=== PATIENT | male | born 1980 | race Native Hawaiian/Other Pacific Islander ===

== ENCOUNTER 2022-11-07 07:34 | Outpatient (CLI) | payer SELFPAY | END 2022-11-07 07:35 | disposition home or self-care (01) | LOC: AMB 11-15 19:20 | PROVIDERS: Visit Provider Family Medicine | DX: R53.83 Other fatigue (principal); R11.2 Nausea with vomiting, unspecified; R53.1 Weakness | CPT/HCPCS: A0425; A0427 ==

== ENCOUNTER 2022-11-07 08:12 | Emergency (ER) | payer SELFPAY ==
[2022-11-07 08:20] VITALS: BP 117/78; PULSE 46; RESP 18; TEMP 36.1; O2SAT 100; BMI 25.4
--- NOTE | 2022-11-07 08:47 | CRLHL7_ITS ---
For Patients: As a result of the Century Cures Act, medical imaging exams and procedure reports are released immediately into your electronic medical record. You may view this report before your referring provider. If you have questions, please contact your health care provider. INDICATION: Chest pain COMPARISON: None TECHNIQUE: PA and lateral views of the chest were acquired FINDINGS: TUBES AND LINES: None. HEART AND MEDIASTINUM: The heart size is normal. The mediastinal contour appears normal for patient age. LUNGS AND PLEURAL SPACES: Mildly prominent perihilar bronchovascular markings on the left. No focal consolidation. This is probably inflammatory.The pleural spaces are unremarkable. OSSEOUS STRUCTURES: Age-appropriate appearance. No acute focal finding. IMPRESSION: Mildly prominent perihilar bronchovascular markings on the left. No focal consolidation. Normal pleural spaces. This is likely inflammatory. Dictated by David Villalobos MD @ 11/07/2022 9:49:36 AM (Electronically Signed)
[2022-11-07 09:00] VITALS: BP 123/72; PULSE 53; RESP 18; O2SAT 100
[2022-11-07 09:07] LABS: Basophils Absolute Auto 0.03 K/uL (0.00-0.30); Basophils Percent Auto 0.3 % (0.0-3.0); Eosinophils Absolute Auto 0.03 K/uL (0.00-0.50); Eosinophils Percent Auto 0.3 % (0.0-7.0); Hematocrit 47.7 % (37.0-53.0); Hemoglobin* 16.1 gm/dL (13.5-17.5); Immature Granulocytes Abs Auto 0.04 K/uL (0.00-0.30); Immature Granulocytes Pct Auto 0.4 %; Mean Corpuscular HGB Conc 34 gm/dL (32-36); Mean Corpuscular Hemoglobin 31 pg (26-34); Mean Corpuscular Volume 92 fL (80-100); Monocytes Percent Auto 3.6 % (0.0-11.0); Neutrophils Percent Auto 81.4 % (42.0-72.0); Platelet Count* 381 K/uL (140-440); RDW Coefficient of Variation % 12.3 % (11.5-15.5); Red Blood Count 5.17 m/uL (4.30-5.90); White Blood Count* 9.79 K/uL (4.50-11.00)
[2022-11-07] MEDS: PANTOPRAZOLE SODIUM 40 MG INJ IVP (09:08)
[2022-11-07] MEDS: ONDANSETRON 2 MG/ML inj 4 MG IVP (09:08)
[2022-11-07] MEDS: 0.9 % SODIUM CHLORIDE 1000 ml 1,000 ML IV (09:08)
[2022-11-07] MEDS: ASPIRIN 81 MG TAB.CHEW 324 MG PO (09:09)
[2022-11-07 09:13] LABS: Slide Review Reflex No
[2022-11-07 09:30] VITALS: BP 135/76; PULSE 67; RESP 18; O2SAT 98
[2022-11-07 09:33] LABS: Chloride* 105 mmol/L (96-114); Potassium* 3.7 mmol/L (3.6-5.1); Sodium* 140 mmol/L (135-149)
[2022-11-07 09:34] LABS: PCR FLU A Negative PCR FLU A (Negative); PCR FLU B Negative PCR FLU B (Negative); PCR RSV Negative PCR RSV (Negative); SARS PCR* Negative SARS-CoV-2 (Negative)
[2022-11-07 09:36] LABS: Blood Urea Nitrogen* 21 mg/dL (5-24); Carbon Dioxide* 16 mmol/L (20-32); Creatinine* 0.9 mg/dL (0.5-1.5); Est. Creatinine Clearance* 99.97; Estimated Glomerular Filt Rate 109 ml/min; Ethanol* 0.05 % (0.01-0.03)
[2022-11-07 09:37] LABS: Calcium* 8.7 mg/dL (8.4-10.6); Glucose* 59 mg/dL (60-115)
[2022-11-07 09:41] LABS: INR 0.94 (0.91-1.10); Partial Thromboplastin Time* 29 Seconds (23-33); Prothrombin Time 13.2 Seconds
[2022-11-07 09:44] LABS: D Dimer Quantitative* 0.54 ug/ml (0.00-0.50)
[2022-11-07 09:48] LABS: NT Pro B Type NatriureticPept* 42 pg/mL
--- NOTE | 2022-11-07 09:52 | CRLHL7_ITS ---
For Patients: As a result of the Century Cures Act, medical imaging exams and procedure reports are released immediately into your electronic medical record. You may view this report before your referring provider. If you have questions, please contact your health care provider. INDICATION: Chest pain with elevated D-dimer COMPARISON: No prior transaxial studies TECHNIQUE: : CT examination of the chest was performed with the uneventful intravenous administration of 95 cc of Isovue 370 while thin axial sections were obtained from above the apices of the lungs to the lung bases. Please note that all CT scans at this facility use dose modulation, iterative reconstruction, and/or weight-based dosing when appropriate to reduce radiation dose to as low as reasonably achievable. FINDINGS: : HEART and MEDIASTINUM: The heart size is normal. There is no mediastinal or hilar adenopathy or mass. There is no pericardial effusion.Mildly prominent ascending aorta at 3.9 centimeters. No evidence of dissection. The 2 most common causes of this appearance are systemic hypertension or aortic valvular disease PULMONARY ARTERIAL CIRCULATION: There is no visible intraluminal filling defect to suggest pulmonary embolus. LUNGS: The lungs show no focal consolidation or mass. The airways appear normal. A few linear areas of atelectasis PLEURAL SPACES: There is no pleural effusion, pneumothorax or pleural based mass. VISUALIZED UPPER ABDOMEN: Hepatic steatosis. Otherwise, the limited visualized upper abdominal structures appear normal. OSSEOUS STRUCTURES: Age-appropriate appearance. No acute fracture or destructive process. TUBES and LINES: None. IMPRESSION: 1. There is no finding of pulmonary embolus. 2. The lungs are clear other than trace basilar atelectasis. Normal pleural spaces. 3. Mild fusiform dilatation of the ascending aorta at 3.9 centimeters. No evidence of dissection. The 2 most common causes of this appearance are systemic hypertension and aortic valvular disease. 4. Hepatic steatosis Please note that all CT scans at this facility use dose modulation, iterative reconstruction, and/or weight-based dosing when appropriate to reduce radiation dose to as low as reasonably achievable. Dictated by David Villalobos MD @ 11/07/2022 10:49:57 AM (Electronically Signed)
[2022-11-07 10:00] VITALS: BP 130/88; PULSE 67; RESP 18; O2SAT 99
[2022-11-07 10:30] VITALS: BP 139/85; RESP 77; O2SAT 99
[2022-11-07 12:00] VITALS: BP 126/79; PULSE 84; RESP 18; O2SAT 99
--- NOTE | 2022-11-07 18:26 | ED_ITS ---
HPI - Chest Pain General Date Seen: 11/07/22 Chief Complaint: Chest Pain Stated Complaint: Collapsed at home Time Seen by Provider: 11/07/22 08:29 Source: patient and family Mode of arrival: ambulatory Limitations: no limitations History of Present Illness HPI narrative: patient is a very nice 42-year-old gentleman who presents here with centralized epigastric chest discomfort for the past 4-6 hours. This came on over the night, there is some maybe a little bit of radiation to his left shoulder associated with this, and some nausea, it was so bad, that he actually got up took a few steps and then was sweating profusely and felt he was going to pass out and laid down on the floor, he does not think he ever really lost consciousness, but there was an episode there worry can not quite remember very well, he denies any current chest pain, no previous history of syncope, but there is a history of increased alcohol intake in the past, no history of black stools or blood in his stools or vomiting up any blood, 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 MD complaint: chest pain Risk Factors Coronary artery disease risk factors: family history of CAD before age 50 Related Data Previous Rx's Medication Instructions Recorded omeprazole 40 mg capsule,delayed 40 mg PO DAILY #30 caps 11/07/22 release Allergies Allergy/AdvReac Type Severity Reaction Status Date / Time No Known Drug Allergies Allergy Verified 11/07/22 10:27 Review of Systems Status of ROS Reports: 10 or more systems reviewed and unremarkable except as noted in History and below PFSH PFS Social History Smoking Status: Unknown if ever smoked Do you use any of these nicotine containing products: None How often do you have a drink containing alcohol: never AUDIT-C Alcohol total score: 0 Non-prescribed substance use: denies use Exam Narrative Exam Narrative: Patient is seen in room 6 he is in no apparent distress speaking to me normally. Patient is speaking normally, problem with no slurring words, oriented x3. Head eyes ears nose and throat exam show equal pupils, no scleral icterus, extraocular muscles are normal, no facial droop, speech is normal, trachea normal and midline. Thyroid normal midline palpable not enlarged. Chest shows symmetrical rise bilaterally, normal auscultation with no wheezes, no increased work of breathing, no overt bruising or lesions seen, no tenderness is noted on auscultation. Heart sounds normal with no S3-S4 no murmurs clicks or gallops. Abdomen shows no obvious masses or hepatosplenomegaly, no organomegaly, bowel sounds are normal in all quadrants. No tenderness is noted also in all quadrants. Upper and lower extremities show normal power, normal range of motion, pulses are normal, sensations normal, fine motor movements are normal, pelvis is stable to rocking. Cervical spine shows normal range of motion, and palpably not tender. Thoracic spine shows normal range of motion, and palpably not tender, lumbar spine shows no tenderness to palpation percussion and is otherwise normal range of motion. Skin shows no rashes, petechiae or eccymosis. Const Vital Signs, click to edit/add: Vital Signs - 24 hr 11/07/22 08:20 11/07/22 09:00 11/07/22 09:30 Temperature 97.0 F L Pulse Rate [Right Pulse Oximeter] 46 L 53 L 67 Respiratory Rate 18 18 18 Blood Pressure [Right Upper Arm] 117/78 123/72 135/76 Pulse Oximetry 100 100 98 Oxygen Delivery Method Room Air Room Air Room Air 11/07/22 10:00 11/07/22 10:30 11/07/22 12:00 Temperature Pulse Rate [Right Pulse Oximeter] 67 84 Respiratory Rate 18 77 H 18 Blood Pressure [Right Upper Arm] 130/88 139/85 126/79 Pulse Oximetry 99 99 99 Oxygen Delivery Method Room Air Room Air Documenting provider has reviewed patient's vital signs: yes Course Vital Signs Vital signs: Initial Vital Signs Temperature 97.0 F L 11/07/22 08:20 Temperature Source Temporal Artery Scan 11/07/22 08:20 Pulse Rate 46 L 11/07/22 08:20 Respiratory Rate 18 11/07/22 08:20 Blood Pressure 117/78 11/07/22 08:20 Blood Pressure Mean 91 11/07/22 08:20 Blood Pressure Position Sitting 11/07/22 08:20 Pulse Oximetry 100 11/07/22 08:20 Oxygen Delivery Method 11/07/22 08:20 Vital Signs Temperature 97.0 F L 11/07/22 08:20 Pulse Rate 46 L 11/07/22 08:20 Respiratory Rate 18 11/07/22 08:20 Blood Pressure 117/78 11/07/22 08:20 Pulse Oximetry 100 11/07/22 08:20 Oxygen Delivery Method 11/07/22 08:20 Temperature 97.0 F L 11/07/22 08:20 Pulse Rate 84 11/07/22 12:00 Respiratory Rate 18 11/07/22 12:00 Blood Pressure 126/79 11/07/22 12:00 Pulse Oximetry 99 11/07/22 12:00 Oxygen Delivery Method 11/07/22 10:30 MDM - Chest Pain MDM Narrative Medical decision making narrative: During the evaluation of this patient I considered multiple differential diagnosis is. The life-threatening differential diagnosis include coronary disease/AR, pulmonary embolism, pneumothorax, pneumonia, and aortic dissection. Other differential diagnosis included but were not limited to pericarditis, myocarditis, chest wall pain, GERD, esophageal rupture, rib fracture contusion, pleurisy, as well as other etiologies. Medical Records Data Attestation: I reviewed the patient's medical records. Lab Data Attestation: I reviewed the patient's lab results. Labs: Lab Results 11/07/22 11/07/22 11/07/22 Range/Units 08:30 08:47 08:50 WBC 9.79 (4.50-11.00) K/uL RBC 5.17 (4.30-5.90) m/uL Hgb 16.1 (13.5-17.5) gm/dL Hct 47.7 (37.0-53.0) % MCV 92 (80-100) fL MCH 31 (26-34) pg MCHC 34 (32-36) gm/dL RDW Coeff of Mariza 12.3 (11.5-15.5) % Plt Count 381 (140-440) K/uL Neut % (Auto) 81.4 H (42.0-72.0) % Lymph % (Auto) 14.0 L (20-44) % Bartow % (Auto) 3.6 (0.0-11.0) % Eos % (Auto) 0.3 (0.0-7.0) % Baso % (Auto) 0.3 (0.0-3.0) % Neut # (Auto) 8.00 H (1.7-7.0) K/uL Lymph # (Auto) 1.40 (0.90-2.90) K/uL Bartow # (Auto) 0.40 (0.00-0.90) K/UL Eos # (Auto) 0.03 (0.00-0.50) K/uL Baso # (Auto) 0.03 (0.00-0.30) K/uL INR (0.91-1.10) APTT (23-33) Seconds D-Dimer Quant (PE/DVT) (0.00-0.50) ug/ml Sodium (135-149) mmol/L Potassium (3.6-5.1) mmol/L Chloride (96-114) mmol/L Carbon Dioxide (20-32) mmol/L BUN (5-24) mg/dL Creatinine (0.5-1.5) mg/dL Estimated Creat Clear Estimated GFR ml/min Glucose (60-115) mg/dL Calcium (8.4-10.6) mg/dL NT-Pro-B Natriuret Pep pg/mL Ethyl Alcohol (0.01-0.03) % SARS-CoV-2 (PCR) Negative SARS-CoV-2 (Negative) Influenza Type A (PCR) Negative PCR FLU A (Negative) Influenza Type B (PCR) Negative PCR FLU B (Negative) RSV (PCR) Negative PCR RSV (Negative) POC Troponin I 0.00 L (0.01-0.04) ng/ml 11/07/22 11/07/22 11/07/22 Range/Units 08:50 08:50 08:50 WBC (4.50-11.00) K/uL RBC (4.30-5.90) m/uL Hgb (13.5-17.5) gm/dL Hct (37.0-53.0) % MCV (80-100) fL MCH (26-34) pg MCHC (32-36) gm/dL RDW Coeff of Mariza (11.5-15.5) % Plt Count (140-440) K/uL Neut % (Auto) (42.0-72.0) % Lymph % (Auto) (20-44) % Bartow % (Auto) (0.0-11.0) % Eos % (Auto) (0.0-7.0) % Baso % (Auto) (0.0-3.0) % Neut # (Auto) (1.7-7.0) K/uL Lymph # (Auto) (0.90-2.90) K/uL Bartow # (Auto) (0.00-0.90) K/UL Eos # (Auto) (0.00-0.50) K/uL Baso # (Auto) (0.00-0.30) K/uL INR 0.94 (0.91-1.10) APTT 29 (23-33) Seconds D-Dimer Quant (PE/DVT) 0.54 H (0.00-0.50) ug/ml Sodium 140 (135-149) mmol/L Potassium 3.7 (3.6-5.1) mmol/L Chloride 105 (96-114) mmol/L Carbon Dioxide 16 L (20-32) mmol/L BUN 21 (5-24) mg/dL Creatinine 0.9 (0.5-1.5) mg/dL Estimated Creat Clear 99.97 Estimated GFR 109 ml/min Glucose 59 L (60-115) mg/dL Calcium 8.7 (8.4-10.6) mg/dL NT-Pro-B Natriuret Pep 42 pg/mL Ethyl Alcohol 0.05 H (0.01-0.03) % SARS-CoV-2 (PCR) (Negative) Influenza Type A (PCR) (Negative) Influenza Type B (PCR) (Negative) RSV (PCR) (Negative) POC Troponin I (0.01-0.04) ng/ml 11/07/22 Range/Units 10:35 WBC (4.50-11.00) K/uL RBC (4.30-5.90) m/uL Hgb (13.5-17.5) gm/dL Hct (37.0-53.0) % MCV (80-100) fL MCH (26-34) pg MCHC (32-36) gm/dL RDW Coeff of Mariza (11.5-15.5) % Plt Count (140-440) K/uL Neut % (Auto) (42.0-72.0) % Lymph % (Auto) (20-44) % Bartow % (Auto) (0.0-11.0) % Eos % (Auto) (0.0-7.0) % Baso % (Auto) (0.0-3.0) % Neut # (Auto) (1.7-7.0) K/uL Lymph # (Auto) (0.90-2.90) K/uL Bartow # (Auto) (0.00-0.90) K/UL Eos # (Auto) (0.00-0.50) K/uL Baso # (Auto) (0.00-0.30) K/uL INR (0.91-1.10) APTT (23-33) Seconds D-Dimer Quant (PE/DVT) (0.00-0.50) ug/ml Sodium (135-149) mmol/L Potassium (3.6-5.1) mmol/L Chloride (96-114) mmol/L Carbon Dioxide (20-32) mmol/L BUN (5-24) mg/dL Creatinine (0.5-1.5) mg/dL Estimated Creat Clear Estimated GFR ml/min Glucose (60-115) mg/dL Calcium (8.4-10.6) mg/dL NT-Pro-B Natriuret Pep pg/mL Ethyl Alcohol (0.01-0.03) % SARS-CoV-2 (PCR) (Negative) Influenza Type A (PCR) (Negative) Influenza Type B (PCR) (Negative) RSV (PCR) (Negative) POC Troponin I 0.00 L (0.01-0.04) ng/ml Imaging Data Chest x-ray: Attestation: I have reviewed the pertinent imaging results. My impression: No acute changes seen on chest x-ray Radiologist's impression: no acute changes seen by per Radiology ECG Data Attestation: I personally reviewed and interpreted this ECG as follows: ECG interpretation date: 11/07/22 Interpretation: no acute changes seen on EKG and follow-up Discharge Plan Discharge Clinical Impression: Aortic root enlargement, Chest pain Patient Disposition: Home w/ Parent or Adult Condition: Improved Instructions: Chest Pain (DC), Noncardiac Chest Pain (ED) Additional Instructions: Home rest follow-up with Dr. Cook in 3-5 days. Please take your Prilosec which is [id number], as prescribed, also suggest avoidance of alcohol, caffeinated beverages, I would also suggest daily aspirin ASA 81 mg, until follow-up. Recommend stress echo as an outpatient. Dr. Cook can arrange this. Increasing chest pain, shortness of breath, or other issues you should come back to the emergency room. He will need to follow-up CT in 3-6 months for the mild aortic root enlargement. Take Prilosec 40 mg a day, I have given a prescription for you, but I did buy it [id number] which for me was cheaper Follow up appointment is scheduled at the [facility] on 11/17 with a 2:50pm arrival time. If you have any questions or need to reschedule, please call [phone]. [facility] [address] [place] [address] Prescriptions: New omeprazole 40 mg capsule,delayed release(DR/EC) 40 mg PO DAILY Qty: 30 2RF Follow Up/Referrals: Cesar Cook MD [Staff Physician] - Provider,Not a Local [Primary Care Provider] - Stand Alone Forms: [employer] Info Instructions
== END 2022-11-07 12:25 | disposition home or self-care (01) ==
PROVIDERS: Emergency Provider Family Medicine
DX: I77.810 Thoracic aortic ectasia (principal); R07.9 Chest pain, unspecified
CPT/HCPCS: 36415; 71046; 71260; 80048; 82077; 83880; 84484; 85025; 85379; 85610; 85730; 87502; 87634; 87635; 93005; 96374; 96375; 99285; A9270; C9113; J2405; J7030; Q9967

== ENCOUNTER 2022-11-17 15:34 | Outpatient (CLI) | payer SELFPAY ==
[2022-11-17 17:26] LABS: Cholesterol* 169 mg/dL (90-199)
[2022-11-17 17:27] LABS: HDL Cholesterol* 68 mg/dL (>=40); LDL Cholesterol Calculated 77 mg/dL (<100); Triglycerides* 121 mg/dL (40-149)
== END 2022-11-17 15:35 | disposition home or self-care (01) ==
LOC: NFLDREF 15:34
PROVIDERS: Visit Provider Family Medicine
DX: R07.9 Chest pain, unspecified (principal)
CPT/HCPCS: 80061

== ENCOUNTER 2022-11-23 15:05 | Outpatient (CLI) | payer SELFPAY ==
[2022-11-23] MEDS: PERFLUTREN LIPID MICROSPHERES 2 ML VIAL IV (16:11)
[2022-11-23 16:45] VITALS: BP 158/85; PULSE 108
--- NOTE | 2022-11-23 19:15 | W.PM.STED ---
Stress Test Note Date Time Seen by Provider: 15:38 Date Seen: 11/23/22 Date of test: 11/23/22 Providers Referring provider: Cesar Cook Primary care provider: Cesar Cook Stress test physician: Jadyn Chambers Stress Test Note Stress test ordered: Stress Echo Indication for test: Chest pain Stress test medicine: [facility] Results discussion: Resting EKG: Sinus rhythm, 73 beats per minute Resting blood pressure: 142/93 Stress test: Patient's cardiac stress test medical history reviewed, consented on stress test. Patient exercised following standard Shamir protocol treadmill stress echo. He exercised to 11 minutes 25 seconds achieving 12.1 Mets. He had a maximum heart rate of 177 beats per minute which was 117% of a calculated target heart rate of 151, maximal calculated heart rate was 178. He had no arrhythmias, no concerning symptoms, no evidence of any ischemia. He did have a hypertensive response to exercise with the blood pressure of 200/106. Rate pressure product was 30,800. Echo images are pending. Impression: Subjectively negative, objectively negative EKG portion of this stress test. Hypertensive response to exercise noted. Follow up suggested: We will await echo images to couple this for a full formal diagnostic. Patient was discharged home in stable condition. He was counseled that his blood pressure should be monitored and initiation of hypertensive management be considered if appropriate.
== END 2022-11-23 15:06 | disposition home or self-care (01) ==
PROVIDERS: Visit Provider Family Medicine
DX: R07.9 Chest pain, unspecified (principal)
CPT/HCPCS: 93016; 93325; 93351; Q9957

== ENCOUNTER 2025-04-25 03:31 | Emergency (ER) | payer OTHER, SELFPAY ==
--- OUTSIDE RECORDS SUMMARY | 2025-04-25 03:33 | XMS_ITS | Clinical Summary ---
Author Organization [facility] Address [address] [place] [id number] Care Team Providers Care Green Chainer Name Role Phone No Ref-Primary, Physician Primary Care Provider Allergies No known active allergies Medications HYDROcodone-quita taminophen (NORCO) 5-325 MG per tabletIndicatio ns:Incarcerated left inguinal hernia,Acute post-operative pain Take 1-2 tablets by mouth every 4 hours as needed for pain 30 tablet 02/02/2017 Active sucralfate (CARAFATE) 1 GM/10ML suspension Take 10 mLs (1 g) by mouth 4 times daily 420 mL 04/12/2018 Active Active Problems Problem Noted Date Diagnosed Date Incarcerated left inguinal hernia 01/27/2017 Social History Tobacco Use Types Packs/Day Years Used Date Smoking Tobacco: Never Assessed Adolescent Education Answer Date Record ed Getting School Help Needed Not on file 08/08 Sex and Gender Information Value Date Recorded Sex Assigned at Not on file 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 Gender Identity Not on file Sexual Orientation Not on file Last Filed Vital Signs Vital Sign Reading Time Taken Comments Blood Pressure 149/93 04/12/2018 6:30 AM CDT Pulse 120 04/12/2018 4:16 AM CDT Temperature 36.8 C (98.2 F) 04/12/2018 4:16 AM CDT Respiratory Rate 22 04/12/2018 4:16 AM CDT Oxygen Saturation 97% 04/12/2018 6:30 AM CDT Inhaled Oxygen Concentration - - Weight 78 kg (172 lb) 04/12/2018 4:16 AM CDT Height 172.7 cm (5' 8) 04/12/2018 4:16 AM CDT Body Mass Index 26.15 04/12/2018 4:16 AM CDT Plan of Treatment Not on file Medical Devices Implanted Type Area [employer] Architect Device Identifier Shelf Expiration Date Model / Serial / Lot Pro Lapeler 12cm X 8cm Mesh Left Implanted:Qty: 1 on 01/27/2017 by Kofi Reyes MD at [facility] Mesh Left: Inguinal COVIDIEN 04/20/2021 [id number] / / [id number] Advance Directives For more information, please contact: [phone] * Full Code (Latest Code Status on File) Date Activated Date Inactivated Comments 01/27/2017 1:54 PM * Full Code Date Activated Date Inactivated Comments 01/27/2017 5:59 AM 01/27/2017 1:54 PM Care Teams Green Chainer Relationship Specialty Start Date End Date No Ref-Primary, Physician PCP - General 04/12/18
--- OUTSIDE RECORDS SUMMARY | 2025-04-25 03:33 | XMS_ITS | Clinical Summary ---
Author Organization [facility] Address [address] [place] [id number] Care Team Providers Care Chart Collector Name Role Phone [facility], [facility] Primary Care Provide r Allergies No known active allergies Medications fluoxetine (PROZAC) 20 mg capsule Take 20 mg by mouth every morning. Active ALPRAZolam (XANAX) 1 mg tablet Take 1 mg by mouth 2 times daily if needed. Active PARoxetine (PAXIL) 20 mg tabletIndication s:Anxiety Take 1 tablet by mouth every morning. 30 tablet 12/11/2017 Active traZODone (DESYREL) 150 mg tabletIndication s:Difficulty sleeping Take 1 tablet by mouth at bedtime. 30 tablet 12/11/2017 Active clonazePAM (KLONOPIN) 0.5 mg tabletIndication s:Anxiety Take 1 tablet by mouth 2 times daily if needed. 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 Gender Identity Not on file Sexual Orientation Not on file Obstetrics History Plan of Treatment Health Maintenance Due Date Last Done Comments HIV for age 15-65 1995 BMI (ht and wt on same day) for age 18+ 1998 Hepatitis C screening for ag e 18-79 1998 Hepatitis B series for 19+ ( 1 of 3 - 19+ 3-dose series) 1999 Lipids for age 35-44 2015 Depression screening for age 12+ 12/11/2018 12/11/2017, 12/11/2017 Tetanus booster 04/05/2019 04/05/2009 COVID-19 vaccine series (2023- season) 2024 Influenza Vaccine (Season Ended) 2025 (IA) Tdap Completed 04/05/2009 Pneumococcal series for age 6-49 Aged Out No longer eligible b ased on patient's age to complete this topic Care Teams Chart Collector Relationship Specialty Start Date End Date [facility], [facility] [address] [place] [address] PCP - General 12/11/17
--- OUTSIDE RECORDS SUMMARY | 2025-04-25 03:33 | XMS_ITS | Clinical Summary ---
Author Organization [facility] Address [address] [place] [address] Care Team Providers Care Carcass Washer Name Role Phone Unavailable Primary Care Provider Unavailabl e Source Comments PLEASE NOTE, if this patient is a minor, it may be UNLAWFUL to discuss sensitive information that is contained in these records (such as FAMILY PLANNING, MENTAL HEALTH or SUBSTANCE ABUSE) with the minor patient's parent or other person without the patient's specific authorization.[facility] Allergies No known active allergies Medications HYDROcodone-acet aminophen (NORCO) 5-325 mg per tablet Take by mouth 02/02/2017 Active Active Problems No known active problems Family History Medical History Relation Name Comments Blindness Neg Glaucoma Neg Macular degeneration Neg Social History Tobacco Use Types Packs/Day Years Used Date Smoking Tobacco: Never Assessed Social Connections Answer Date Recorded Social Connections and Isolation 0 06/15/2019 Financial Resource Strain Answer Date R ecorded Financial Resource Strain 0 2018 Stress Answer Date Recorded Stress 0 06/15/2019 Physical Activity Answer Date Recorded Physical Activity 0 06/15/2019 Food Insecurity Answer Date Recorded Food 0 06/15/2019 Transportation Needs Answer Date Record ed Transportation 0 06/15/2019 Housing Stability Answer Date Recorded Housing 0 06/15/2019 Safety and Environment Answer Date Selvin rded Safety 0 06/15/2019 Utilities Answer Date Recorded Utilities 0 06/15/2019 Employment Answer Date Recorded Employment 0 06/15/2019 Sex and Gender Information Value Date Recorded Sex Assigned at Not on file Legal Sex Male 9:39 AM PDT Gender Identity Not on file Sexual Orientation Not on file Plan of Treatment Not on file
[2025-04-25 03:48] VITALS: BP 131/92; PULSE 103; RESP 16; TEMP 37; O2SAT 97; BMI 25.8
--- NOTE | 2025-04-25 03:58 | ED_ITS ---
HPI - General Adult General Date Seen: 04/25/25 Chief complaint: Alcohol/Intoxication Stated complaint: detoxing from ETOH Time Seen by Provider: 04/25/25 03:57 History of Present Illness HPI narrative: 44-year-old male presenting to the ER tonight at 3:45 a.m. he presents to the ER tonight for alcohol problems, vomiting, and concern for withdrawal. He has a past medical history of GERD, enlarged aortic root, anxiety, alcoholic gastritis. He presents to the emergency department with his and mother with concern for alcohol abuse, vomiting, and hematemesis. He has a history of alcohol abuse in the past but had apparently been through treatment and had been sober now for 6 months. 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 He also has relationship stress with his . Last weekend he started drinking again. He apparently started drinking socially with some friends and then just could not stop. He has been drinking heavily since last weekend. Roughly a bottle of hard alcohol per day and also maybe 10 beers. He started trying to cut down a couple of days ago. He developed nausea and . It sounds like he was having repetitive nonbloody emesis at home. Bowel movements been sometimes liquidy and dark brown but not melanotic. No bloody stools. He has been trying to gradually titrate down his alcohol consumption. Last alcoholic drink was probably 8 hours prior to presentation. What brought him to the ER at at this hour the night is that at home he had another episode of vomiting and vomited up a small amount of bright red blood. Is also having some burning pain in his upper abdomen and lower esophagus. He has pain with swallowing. He also says that he has not been able to control his drinking this week. Says whenever he stops he gets very anxious. He has a history of anxiety. He typically manages over the long-term with exercise. He does not like to take medications. Does really have a doctor for his anxiety and is not on any long- term meds. It sounds like years ago he was given a prescription for p.r.n. benzodiazepine. Related Data Home Medications ?Medication ?Instructions ?Recorded ?Confirmed No Known Home Medications 04/25/2503/15 Allergies Allergy/AdvReac Type Severity Reaction Status Date / Time No Known Drug Allergies Allergy Verified 11/17/22 15:06 [facility] Medical History (Updated 04/25/25 @ 05:53 by Thierno Caro MD) GERD (gastroesophageal reflux disease) ?K21.9 - Gastro-esophageal reflux disease without esophagitis (ICD-10) Insomnia ?G47.00 - Insomnia, unspecified (ICD-10) Anxiety attack ?F41.0 - Panic disorder [episodic paroxysmal anxiety] (ICD-10) Alcoholic gastritis ?K29.20 - Alcoholic gastritis without bleeding (ICD-10) Aortic root enlargement ?I77.89 - Other specified disorders of arteries and arterioles (ICD-10) Family History (Updated 11/19/22 @ 23:34 by Cesar Cook MD) Father Coronary artery disease Social History (Updated 11/19/22 @ 23:33 by Cesar Cook MD) Narrative: Former smoker, owns [employer] in [place] Smoking Status: Former smoker Do you use any of these nicotine containing products: None How often do you have a drink containing alcohol: 4 or more times a week How many standard drinks containing alcohol do you have on a typical day: 10 or more How often do you have six or more drinks on one occasion: Daily or almost daily AUDIT-C Alcohol total score: 12 Non-prescribed substance use: denies use Exam Narrative: Exam Narrative: Constitutional: Appears well-developed and well-nourished. Alert. Conversant, polite. Speech is fluent and does not seem to be slurred.. Non toxic. HENT: Head: Atraumatic. Nose: Nose normal. Mouth/Throat: Oral mucosa is clear and moist. no trismus. Pharynx normal. Tonsils symmetric. No tonsillar enlargement, erythema, or exudate. Eyes: Conjunctivae normal. EOM normal. Pupils equal, round, and reactive to light. No scleral icterus. Neck: Normal range of motion. Neck supple. No tracheal deviation present. Cardiovascular: Normal rate, regular rhythm. No gallop. No friction rub. No murmur heard. Symmetric radial artery pulses Pulmonary/Chest: Effort normal. No stridor. No respiratory distress. No wheezes. No rales. No rhonchi . No tenderness. Abdominal: Soft. Bowel sounds normal. No distension. No mass. Epigastric tenderness. No right upper quadrant tenderness. No rebound. No guarding. Musculoskeletal: RUE: Normal range of motion. No tenderness. No deformity LUE: Normal range of motion. No tenderness. No deformity RLE: Normal range of motion. No edema. No tenderness. No deformity LLE: Normal range of motion. No edema. No tenderness. No deformity Neurological: Alert and oriented to person, place, and time. Normal strength. CN II-VII intact. No sensory deficit. GCS eye subscore is 4. GCS verbal subscore is 5. GCS motor subscore is 6. Normal coordination Skin: Skin is warm and dry. No rash noted. No pallor. Normal capillary refill. Psychiatric: Endorses lot of anxiety. As long life stress with his job in relationship with his . Has a history of alcohol abuse but had been sober for 6 months until he relapsed last week and has been drinking heavily since then.. Does not have any long-term treatment for his anxiety. No medications. Would be willing to consider transfer to detox. He says, ?what ever you think is necessary. ? Const: Vital Signs, click to edit/add: Vital Signs - 24 hr 04/25/25 03:48 04/25/25 04:44 04/25/25 05:31 Temperature 98.6 F Pulse Rate [Pulse Oximeter] 103 H 80 84 Respiratory Rate 16 16 16 Blood Pressure [Ri ght Upper Arm] 131/92 H 126/94 H 106/71 Pulse Oximetry 97 94 93 Oxygen Delivery Me thod Room Air Room Air Room Air Course Course ED Course: Recheck-receive Zofran and then was able to take oral Ativan and GI cocktail and noted improvement in symptoms. Reevaluation(s) Reevaluation #1: Recheck-sleeping but easily arousable. Heart rate improved. Blood pressure stable. Reevaluation #2: Recheck-tolerating p.o.. Vital Signs Vital signs: Initial Vital Signs Temperature 98.6 F 04/25/25 03:48 Temperature Source Temporal Artery Scan 04/25/25 03:48 Pulse Rate 103 H 04/25/25 03:48 Respiratory Rate 16 04/25/25 03:48 Blood Pressure 131/92 H 04/25/25 03:48 Blood Pressure Mean 105 04/25/25 03:48 Blood Pressure Position Sitting 04/25/25 03:48 Pulse Oximetry 97 04/25/25 03:48 Oxygen Delivery Method Room Air 04/25/25 03:48 Vital Signs Temperature 98.6 F 04/25/25 03:48 Pulse Rate 103 H 04/25/25 03:48 Respiratory Rate 16 04/25/25 03:48 Blood Pressure 131/92 H 04/25/25 03:48 Pulse Oximetry 97 04/25/25 03:48 Oxygen Delivery Method Room Air 04/25/25 03:48 Temperature 98.6 F 04/25/25 03:48 Pulse Rate 84 04/25/25 05:31 Respiratory Rate 16 04/25/25 05:31 Blood Pressure 106/71 04/25/25 05:31 Pulse Oximetry 93 04/25/25 05:31 Oxygen Delivery Method Room Air 04/25/25 05:31 Medications Administered Medications: Discontinued Medications Generic Name Dose Route Start Last Admin Trade Name Freq PRN Reason Stop Dose Admin Sodium Chloride 1,000 mls @ 1,000 mls/hr 04/25/25 04:30 04/25/25 05:05 0.9 % Sodium Chloride 1000 Ml IV 04/25/25 05:29 Infused .Q1H ROSANA Infusion Sodium Chloride 1,000 mls @ 1,000 mls/hr 04/25/25 04:45 04/25/25 05:36 0.9 % Sodium Chloride 1000 Ml IV 04/25/25 05:44 Infused .Q1H ROSANA Infusion Lidocaine/Aluminum/Magnesium/Simeth 30 ml 04/25/25 04:17 04/25/25 04:31 Gi Cocktail (Visc Lido/Antacid) 30 Ml PO 04/25/25 04:18 30 ml ONCE ONE Administration Lorazepam 1 mg 04/25/25 04:17 04/25/25 04:31 Lorazepam 1 Mg Tablet PO 04/25/25 04:18 1 mg ONCE ONE Administration Ondansetron HCl 4 mg 04/25/25 04:17 04/25/25 04:30 Ondansetron 2 Mg/Ml Inj IVP 04/25/25 04:18 4 mg ONCE ONE Administration Pantoprazole Sodium 80 mg 04/25/25 04:17 04/25/25 04:30 Pantoprazole Sodium 40 Mg Inj IVP 04/25/25 04:18 80 mg ONCE ONE Administration Medical Decision Making [facility] Narrative Medical decision making narrative: 44-year-old gentleman with history of alcohol abuse, anxiety, presenting to the ER today with concern because he has been bingeing with alcohol for the past week and cannot stop drinking. In that context has been vomiting for the past 3 days. In that contacts had an episode of a small volume bright red emesis tonight prompted his visit to the ER. 1. Upper GI bleed. Patient denies any recent black or bloody stools. He is having epigastric pain and lower chest pain which goes raise concern for alcoholic gastritis or peptic ulcer disease. However based on history would favor probable Anne-Maynard tear. He had a sinus tachycardia with her aorta of 103 but normal blood pressure. Mental status is normal and skin is pink, warm, well perfused. Treated with IV PPI here in the ER tonight. Hemoglobin is actually elevated at 7.3. Suggesting hemoconcentration. 2. Abdominal pain and vomiting. Differential here would include peptic ulcer disease, gastritis, esophagitis as well as alcoholic pancreatitis, hepatitis, gallstone disease, as well as other causes such as diverticulitis, colitis. However given absence of lower abdominal pain and other significant diarrhea, Fortunately electrolytes look good with sodium of 141 potassium 4.4. Bicarb is 27. Kidney function is grade with BUN of 11 and creatinine 0.9. 3. Alcohol abuse. Patient has had alcohol abuse problems for years. Had gone through treatment apparently and had been sober for 6 months prior to last weekend. He does have significant nausea and vomiting and anxiety which could be alcohol withdrawal symptoms. He did report that last alcohol consumption was about 8 hours prior to presentation. On initial lab draw, alcohol level is 0.18. This would likely argue that he has been consuming alcohol more recently. LFTs are while the no with bilirubin of 2.6 and an AST of 56. Lipase is normal at 137. Provided with resources for outpatient alcohol treatment. 4. Anxiety. Sounds like it may have underlying anxiety disorder and drinks heavily to self medicate for that. He had been treated in the past with benzos. He requests some anxiety medications. I felt this was appropriate to treat not only anxiety but potentially evolving/early alcohol withdrawal. At this point the patient is symptomatically feeling better. Nausea is improved. He is tolerating p.o.. Lactic acid is improved after IV fluids. Hemoglobin is actually elevated, arguing against the presence of any subacute GI bleeding or acute rapid life-threatening upper GI hemorrhage. With reasonable clinical confidence I think he is safe for discharge home with his mother and his . Will give him prescriptions for Zofran that they can use for nausea and Ativan that he can use for anxiety and to help treat withdrawal symptoms. He understands that he cannot mix Ativan with alcohol. Discussed plan of care with the patient and his mother. They are in agreement. Instymeds prescriptions for Ativan mg tablets -10. Zofran 4 mg ODT-10. Lab Data Labs: Lab Results 04/25/25 04/25/25 04/25/25 Range/Units 04:04 04:18 05:43 WBC 7.71 (4.50-11.00) K/uL RBC 5.93 H (4.30-5.90) m/uL Hgb 17.3 14.5 (13.5-17.5) gm/dL Hct 49.6 (37.0-53.0) % MCV 84 (80-100) fL MCH 29 (26-34) pg MCHC 35 (32-36) gm/dL RDW Coeff of Mariza 12.7 (11.5-15.5) % Plt Count 383 (140-440) K/uL Neut % (Auto) 59.2 (42.0-72.0) % Lymph % (Auto) 30.9 (20-44) % Terrell % (Auto) 7.7 (0.0-11.0) % Eos % (Auto) 0.9 (0.0-7.0) % Baso % (Auto) 0.5 (0.0-3.0) % Neut # (Auto) 4.57 (1.7-7.0) K/uL Lymph # (Auto) 2.38 (0.90-2.90) K/uL Terrell # (Auto) 0.60 (0.00-0.90) K/UL Eos # (Auto) 0.07 (0.00-0.50) K/uL Baso # (Auto) 0.04 (0.00-0.30) K/uL Abs Immat Gran (auto) 0.06 (0.00-0.30) K/uL Imm/Tot Granulo (auto) 0.8 % INR 1.08 (0.91-1.10) Sodium 141 (135-149) mmol/L Potassium 4.4 (3.6-5.1) mmol/L Chloride 100 (96-114) mmol/L Carbon Dioxide 27 (20-32) mmol/L Anion Gap 14 (7-15) mEq/L BUN 11 (5-24) mg/dL Creatinine 0.9 (0.5-1.5) mg/dL Estimated Creat Clear 97.93 Estimated GFR 108 ml/min Glucose 123 H (60-115) mg/dL Lactate 4.1 H* 3.0 H (0.5-1.9) mmol/L Calcium 9.0 (8.4-10.6) mg/dL Magnesium 1.8 (1.5-2.6) mg/dL Total Bilirubin 2.6 H (0.1-1.5) mg/dL AST 56 H (12-35) U/L ALT 40 (4-50) U/L Alkaline Phosphatase 56 (40-150) U/L Total Protein 8.4 H (6.0-8.3) g/dL Albumin 4.8 (3.3-5.0) g/dL Lipase 137 (23-300) U/L Acetaminophen < 10.0 (10.0-30.0) ug/mL Ethyl Alcohol 0.18 H (0.01-0.03) % ECG Data Interpretation: Normal sinus rhythm Rate 83 OK interval 154 Normal QRS axis. No ST segment elevation or depression. QTC 418 Discharge Plan Discharge Clinical Impression: Alcohol abuse, Alcohol intoxication, Vomiting, Anne-Maynard tear, Anxiety, Abnormal LFTs (liver function tests) Patient Disposition: Home w/ Parent or Adult Condition: Stable Instructions: Alcohol Intoxication (DC), Abuse of Alcohol (DC), Alcohol Withdrawal (ED), Anne-Maynard Syndrome (ED) Additional Instructions: As we discussed, please return to the ER right away if you have uncontrolled nausea vomiting, any more episodes of vomiting blood, worsening abdominal pain, or if you have symptoms of alcohol withdrawal such as shaking or tremors, hallucinations, or seizures. Please recheck with your regular doctor on Sunday. To help manage her symptoms as you stop drinking alcohol you can use Zofran as needed for nausea. Use Ativan as needed for anxiety and to help treat/prevent alcohol withdrawal. Be careful with Ativan. Do not mix it with alcohol . Prescriptions: No Action No Known Home Medications Follow Up/Referrals: Provider,Not a Local [Primary Care Provider, Family Practice] Stand Alone Forms: MyHealth Info Instructions
[2025-04-25 04:28] LABS: Lactate* 4.1 mmol/L (0.5-1.9)
[2025-04-25] MEDS: PANTOPRAZOLE SODIUM 40 MG INJ 80 MG IVP (04:30)
[2025-04-25] MEDS: ONDANSETRON 2 MG/ML inj 4 MG IVP (04:30)
[2025-04-25] MEDS: GI COCKTAIL (VISC LIDO/ANTACID) 30 ML PO (04:31)
[2025-04-25 04:34] LABS: Hematocrit 49.6 % (37.0-53.0); Hemoglobin* 17.3 gm/dL (13.5-17.5); Immature Granulocytes Abs Auto 0.06 K/uL (0.00-0.30); Immature Granulocytes Pct Auto 0.8 %; Lymphocytes Absolute Auto 2.38 K/uL (0.90-2.90); Mean Corpuscular HGB Conc 35 gm/dL (32-36); Mean Corpuscular Hemoglobin 29 pg (26-34); Mean Corpuscular Volume 84 fL (80-100); RDW Coefficient of Variation % 12.7 % (11.5-15.5); Red Blood Count 5.93 m/uL (4.30-5.90); White Blood Count* 7.71 K/uL (4.50-11.00)
[2025-04-25 04:35] LABS: Albumin* 4.8 g/dL (3.3-5.0)
[2025-04-25 04:36] LABS: Chloride* 100 mmol/L (96-114); Potassium* 4.4 mmol/L (3.6-5.1); Sodium* 141 mmol/L (135-149)
[2025-04-25 04:37] LABS: INR 1.08 (0.91-1.10); Prothrombin Time 14.8 Seconds
[2025-04-25 04:38] LABS: Alanine Aminotransferase* 40 U/L (4-50); Alkaline Phosphatase* 56 U/L (40-150); Anion Gap 14 mEq/L (7-15); Aspartate Amino Transferase* 56 U/L (12-35); Bilirubin Total* 2.6 mg/dL (0.1-1.5); Blood Urea Nitrogen* 11 mg/dL (5-24); Carbon Dioxide* 27 mmol/L (20-32); Creatinine* 0.9 mg/dL (0.5-1.5); Est. Creatinine Clearance* 97.93; Estimated Glomerular Filt Rate 108 ml/min
[2025-04-25 04:39] LABS: Calcium* 9.0 mg/dL (8.4-10.6); Ethanol* 0.18 % (0.01-0.03); Glucose* 123 mg/dL (60-115); Total Protein* 8.4 g/dL (6.0-8.3)
[2025-04-25 04:41] LABS: Acetaminophen* < 10.0 ug/mL (10.0-30.0)
[2025-04-25 04:42] LABS: Slide Review Reflex No
[2025-04-25 04:44] VITALS: BP 126/94; PULSE 80; RESP 16; O2SAT 94
[2025-04-25 05:31] VITALS: BP 106/71; PULSE 84; RESP 16; O2SAT 93
[2025-04-25 05:46] LABS: Lactate* 3.0 mmol/L (0.5-1.9)
[2025-04-25 05:48] LABS: Hemoglobin* 14.5 gm/dL (13.5-17.5)
== END 2025-04-25 06:06 | disposition home or self-care (01) ==
PROVIDERS: Emergency Provider Emergency Medicine
DX: F10.129 Alcohol abuse with intoxication, unspecified (principal); F41.9 Anxiety disorder, unspecified; R94.5 Abnormal results of liver function studies
CPT/HCPCS: 36415; 80053; 80143; 82077; 83605; 83690; 83735; 85018; 85025; 85610; 93005; 96374; 96375; 99284; 99285; A9270; J2405; J2470; J7030

== ENCOUNTER 2025-09-24 02:33 | Emergency (ER) | payer OTHER, SELFPAY ==
--- OUTSIDE RECORDS SUMMARY | 2025-09-24 02:35 | XMS_ITS | Clinical Summary ---
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 Gender Identity Not on file Sexual Orientation [...] on file Medical Devices Implanted Type Area Direct Mail Coordinator Device Identifier Shelf Expiration Date Model / Serial / Lot Pro [employer] 12cm X 8cm Mesh Left Implanted:Qty: 1 on 01/27/2017 by Kofi Reyes MD at [facility] Mesh Left: Inguinal COVIDIEN 04/20/2021 [id number] / / [id number] Advance Directives For more information, please contact: [phone] * Full Code (Latest Code Status on File) Date Activated Date Inactivated Comments 01/27/2017 1:54 PM * Full Code Date Activated Date Inactivated Comments 01/27/2017 5:59 AM 01/27/2017 1:54 PM Care Teams [employer] Guidance Counselor Relationship Specialty Start Date End Date No Ref-Primary, Physician PCP - General 04/12/18
--- OUTSIDE RECORDS SUMMARY | 2025-09-24 02:35 | XMS_ITS | Clinical Summary ---
Author Organization [employer] [facility] Address [address] [place] [id number] Care Team Providers Care Mapping Technician Name Role Phone [facility] Primary Care Provide r Allergies No [...] Diagnosed Date Anxiety attack 01/06/2010 Depression 01/06/2010 Encounters Date Type Department Care Team Description 07/07/2025 Orders Only [facility] [address] [facility] [place] [id number] David Leahy MD 1 scan: (1-Ord) diag order from Last 3 Months Immunizations Immunization Administration Dates Next Due Tdap 04/05/2009 Social History Tobacco Use Types Packs/Day Years Used Date Smoking Tobacco: Every Day Cigarettes Alcohol Use Standard Drinks/Week Comments Not Asked 0 (1 standard drink = 0.6 oz pur e alcohol) Sex and Gender Information Value Date Recorded Sex Assigned at Not on file 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 Gender Identity Not on file Sexual Orientation Not on file Obstetrics History Plan of Treatment Health Maintenance Due Date Last Done Comments HIV for age 15-65 1995 BMI (ht and wt on same day) for age 18+ 1998 Hepatitis C screening for ag e 18-79 1998 Hepatitis B series for 19+ ( 1 of 3 - 19+ 3-dose series) 1999 HPV series for age 9-45 (1 - 3-dose SCDM series) 2007 Depression screening for age 12+ 12/11/2018 12/11/2017, 12/11/2017 Tetanus booster 04/05/2019 04/05/2009 COVID-19 vaccine series (2024- season) 2025 Influenza Vaccine (#1) 2025 Colonoscopy through age 75 2025 Lipids for age 45-75 2025 RSV vaccine for adults or (1 - 1-dose 75+ series) 2055 Pneumococcal series for age 6-49 Aged Out No longer eligible b ased on patient's age to complete this topic Care Teams Mapping Technician Relationship Specialty Start Date End Date Clinic, [facility] [place] [address] [place] [address] PCP - General 12/11/17
[2025-09-24 02:39] VITALS: BP 148/100; PULSE 84; RESP 20; TEMP 36.6; O2SAT 98; BMI 26.9
--- NOTE | 2025-09-24 02:47 | ED_ITS ---
HPI - Chest Pain General Time Seen by Provider: 02:48 Date Seen: 09/24/25 Chief Complaint: Chest Pain Stated Complaint: chest pain/going thru detox Time Seen by Provider: 09/24/25 02:47 Source: patient and family () Mode of arrival: ambulatory History of Present Illness HPI narrative: David is a 45-year-old male with a past medical history of alcohol use disorder, GRED, anxiety who presents the emergency department for evaluation of chest pain. Patient reports history of alcohol use disorder, states that the past 10 days he has been binge drinking and drinking approximately a six-pack of beer along with 6 shots daily. Patient reports his last drink was on Sunday night 09/22/2025. Patient states that he has been unable to sleep for the past 3 nights, states that he was lying this morning, unable to sleep, with chest pain, sensation that his heart was pounding, and headache. Patient describes the pain pain as a tightness in his substernal chest in his epigastric region. Patient reports pain is associated with some difficulty breathing. Denies any fever, chills, cough or cold-like symptoms. Patient also reports feeling shaky, sweaty, thinking he may be in withdrawal however wanted to make sure there is nothing else going on with his heart. Patient also reports decreased oral intake along with nausea, vomiting, diarrhea over the past few days. Patient reports lots of stressors with his job as well as anxiety and patient tends to drink to can help with the anxiety. Denies any other substance use. No other complaints. Related Data Home Medications ?Medication ?Instructions ?Recorded ?Confirmed No Known Home Medications 04/25/25 0703/15 Allergies Allergy/AdvReac Type Severity Reaction Status Date / Time No Known Drug Allergies Allergy Verified 11/17/22 15:06 Review of Systems Narrative Past medical history, past surgical history, medications, allergies, family history, and social history were reviewed with the patient. No additional pertinent items. A medically appropriate review of systems was performed with pertinent positives and negatives noted in HPI, all other systems negative. [facility] Medical History (Updated 09/24/25 @ 03:24 by Kaitlynn Ambrocio MD) GERD (gastroesophageal reflux disease) ?K21.9 - Gastro-esophageal reflux disease without esophagitis (ICD-10) Insomnia ?G47.00 - Insomnia, unspecified (ICD-10) Anxiety attack ?F41.0 - Panic disorder [episodic paroxysmal anxiety] (ICD-10) Alcoholic gastritis ?K29.20 - Alcoholic gastritis without bleeding (ICD-10) Aortic root enlargement ?I77.89 - Other specified disorders of arteries and arterioles (ICD-10) Family History (Updated 11/19/22 @ 23:34 by Cesar Cook MD) Father Coronary artery disease Social History (Updated 11/19/22 @ 23:33 by Cesar Cook MD) Narrative: 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 MMM Neck: non-tender, supple Cardio: regular rate. regular rhythm Resp: Normal work of breathing, no respiratory distress, lungs clear bilaterally, no wheezing, rhonchi, rales Chest/Back: no visual signs of trauma, no midline tenderness, no CVA tenderness Abdomen: soft, non distension, mild tenderness to palpation epigastric and right upper quadrant, no rebound, guarding, no peritoneal signs Neuro: alert and fully oriented. Tremulous, CN II-XII intact. Normal strength and sensation in all extremities. MSK: no deformities. Normal range of motion Integumentary/Skin: no rash visualized, normal color Psych: normal affect, normal behavior Const Vital Signs, click to edit/add: Vital Signs - 24 hr 09/24/25 02:39 09/24/25 03:58 09/24/25 04:20 Temperature 97.8 F Pulse Rate [Pulse Oximeter] 84 84 Respiratory Rate 20 16 16 Blood Pressure [Right Arm] Blood Pressure [Right Upper Arm] 148/100 H 137/91 H Pulse Oximetry 98 96 93 Oxygen Delivery Method Room Air Room Air Room Air 09/24/25 05:05 Temperature Pulse Rate [Pulse Oximeter] 96 Respiratory Rate 16 Blood Pressure [Right Arm] 143/86 H Blood Pressure [Right Upper Arm] Pulse Oximetry 97 Oxygen Delivery Method Room Air Course Vital Signs Vital signs: Initial Vital Signs Temperature 97.8 F 09/24/25 02:39 Temperature Source Temporal Artery Scan 09/24/25 02:39 Pulse Rate 84 09/24/25 02:39 Respiratory Rate 20 09/24/25 02:39 Blood Pressure 148/100 H 09/24/25 02:39 Blood Pressure Mean 116 H 09/24/25 02:39 Blood Pressure Position Sitting 09/24/25 02:39 Pulse Oximetry 98 09/24/25 02:39 Oxygen Delivery Method Room Air 09/24/25 02:39 Vital Signs Temperature 97.8 F 09/24/25 02:39 Pulse Rate 84 09/24/25 02:39 Respiratory Rate 20 09/24/25 02:39 Blood Pressure 148/100 H 09/24/25 02:39 Pulse Oximetry 98 09/24/25 02:39 Oxygen Delivery Method Room Air 09/24/25 02:39 Temperature 97.8 F 09/24/25 02:39 Pulse Rate 96 09/24/25 05:05 Respiratory Rate 16 09/24/25 05:05 Blood Pressure 143/86 H 09/24/25 05:05 Pulse Oximetry 97 09/24/25 05:05 Oxygen Delivery Method Room Air 09/24/25 05:05 Medications Administered Medications: Generic Name Dose Route Start Last Admin Trade Name Freq PRN Reason Stop Dose Admin Diazepam 5 mg 09/24/25 05:28 09/24/25 05:39 Diazepam 5 Mg Tablet PO 09/24/25 05:29 5 mg ONCE ONE Administration Discontinued Medications Generic Name Dose Route Start Last Admin Trade Name Freq PRN Reason Stop Dose Admin Diazepam 5 mg 09/24/25 03:49 09/24/25 03:55 Diazepam 5 Mg/Ml Inj IV 09/24/25 03:50 5 mg ONCE ONE Administration Sodium Chloride 1,000 mls @ 1,000 mls/hr 09/24/25 03:30 09/24/25 04:24 0.9 % Sodium Chloride 1000 Ml IV 09/24/25 04:29 Infused .Q1H ROSANA Infusion Ondansetron HCl 4 mg 09/24/25 03:16 09/24/25 03:33 Ondansetron 2 Mg/Ml Inj IVP 09/24/25 03:17 4 mg ONCE ONE Administration Pantoprazole Sodium 40 mg 09/24/25 03:16 09/24/25 03:33 Pantoprazole Sodium 40 Mg Inj IVP 09/24/25 03:17 40 mg ONCE ONE Administration MDM - Chest Pain MDM Narrative Medical decision making narrative: David is a 45-year-old male with a past medical history of alcohol use disorder, GRED, anxiety who presents the emergency department for evaluation of chest pain. Upon arrival patient is nontoxic appearing, afebrile, in distress. Patient hypertensive upon arrival with blood pressure 148/100, rate 84, oxygen 98% on room air. Differential diagnosis includes but is not limited to ACS versus atypical chest pain versus anxiety versus alcohol withdrawal versus gastritis versus alcoholic gastritis versus pancreatitis versus biliary colic versus cholecystitis among others. Patient reports history of alcohol withdrawals, denies any history of alcohol withdrawal seizures. Patient is not interested in inpatient detox at this time. Upon arrival EKG, comprehensive labs, chest x-ray performed. Patient was treated with IV Zofran, Protonix, 1 L IV fluid bolus. CIWA was performed. I reviewed EKG which demonstrates normal sinus rhythm with a ventricular rate of 92 beats per minute, normal axis, QTC 425, no acute ischemic change. No significant change when compared to prior EKG. I reviewed patient's prior ED visit on 04/25/2025 including ED documentation, EKG, laboratory testing and treatment plan. Initial CIWA 15. Patient was treated with IV diazepam 5mg (due to dry heaving). Comprehensive labs with no leukocytosis white blood cell count 6.8, hemoglobin 16.3, no acute metabolic electrolyte abnormality, creatinine 0.9, normal magnesium, bilirubin slightly elevated 2.8, AST 53, ALT 31, alkaline phosphatase 70, normal lipase. (similar liver elevations when compared to prior labs on 04/25/25. Initial high sensitive troponin 7.1. Repeat high sensitive troponin 6.9. I personally reviewed and interpreted chest x-ray which is unremarkable with no cardiomegaly, no focal infiltrate, pleural effusion, pneumothorax. On re-evaluation patient resting comfortably, reports improvement of symptoms, patient repeat CIWA 4. Patient was given 5 mg of oral Valium, tolerating water and crackers in the emergency department. I discussed results with patient. Low suspicious for ACS, no evidence of acute infection, no acute metabolic electrolyte abnormality. I discussed results with patient and family and I did recommend and offer admission or referral/transfer to detox for ongoing monitoring and treatment of alcohol withdrawals in the setting of alcohol use disorder. Patient declined and states he would like to go home. Outpatient resources provided. Strict return precautions discussed if worsening symptoms. Patient and family understand agrees the plan. Medical Records Data Attestation: I reviewed the patient's medical records. Lab Data Attestation: I reviewed the patient's lab results. Labs: Lab Results 09/24/25 09/24/25 09/24/25 Range/Units 02:51 03:45 05:02 WBC 6.89 (4.50-11.00) K/uL RBC 5.57 (4.30-5.90) m/uL Hgb 16.3 (13.5-17.5) gm/dL Hct 46.9 (37.0-53.0) % MCV 84 (80-100) fL MCH 29 (26-34) pg MCHC 35 (32-36) gm/dL RDW Coeff of Mariza 12.8 (11.5-15.5) % Plt Count 279 (140-440) K/uL Neut % (Auto) 57.2 (42.0-72.0) % Lymph % (Auto) 31.3 (20-44) % [place] % (Auto) 9.0 (0.0-11.0) % Eos % (Auto) 1.5 (0.0-7.0) % Baso % (Auto) 0.6 (0.0-3.0) % Neut # (Auto) 3.94 (1.7-7.0) K/uL Lymph # (Auto) 2.16 (0.90-2.90) K/uL [place] # (Auto) 0.60 (0.00-0.90) K/UL Eos # (Auto) 0.10 (0.00-0.50) K/uL Baso # (Auto) 0.04 (0.00-0.30) K/uL Abs Immat Gran (auto) 0.03 (0.00-0.30) K/uL Imm/Tot Granulo (auto) 0.4 % Sodium 135 (135-149) mmol/L Potassium 4.4 (3.6-5.1) mmol/L Chloride 98 (96-114) mmol/L Carbon Dioxide 24 (20-32) mmol/L Anion Gap 13 (7-15) mEq/L BUN 9 (5-24) mg/dL Creatinine 0.9 (0.5-1.5) mg/dL Estimated Creat Clear 96.91 Estimated GFR 107 ml/min Glucose 97 (60-115) mg/dL Calcium 8.5 (8.4-10.6) mg/dL Magnesium 1.6 (1.5-2.6) mg/dL Total Bilirubin 2.8 H (0.1-1.5) mg/dL AST 53 H (12-35) U/L ALT 31 (4-50) U/L Alkaline Phosphatase 70 (40-150) U/L POC Troponin I High Sensi 7.1 6.9 (2.9-28.0) pg/mL Total Protein 7.2 (6.0-8.3) g/dL Albumin 4.2 (3.3-5.0) g/dL Lipase 183 (23-300) U/L Ethyl Alcohol 0.05 H (0.01-0.03) % Imaging Data Chest x-ray: Attestation: I have reviewed the pertinent imaging results. Radiologist's impression: Patient: David Olivo MR#: [id number] : 1980 Acct:[id number] Loc: ED Service Date: 09/24/[address]: Ordering Physician: Kaitlynn Ambrocio M.D. Date of Service: 09/24/25 Procedure(s): XR chest 2V Accession Number(s): [id number] cc: Kaitlynn Ambrocio M.D.; Provider,Not a Local~ For Patients: As a result of the 21st Century Cures Act, medical imaging exams and procedure reports are released immediately into your electronic medical record. You may view this report before your referring provider. If you have questions, please contact your health care provider. Indication: Chest pain. Technique: Two views of the chest. Comparison: Chest x-ray 11/07/2022. Findings/Impression: The heart is not abnormally enlarged. Mediastinal contours are grossly within normal limits. No definite confluent airspace opacity. No pleural effusion or pneumothorax. No acute osseous abnormality. Dictated by Diego Camacho MD @ 09/24/2025 3:40:11 AM (Electronically Signed) Discharge Plan Discharge Clinical Impression: Chest pain, Alcohol abuse with withdrawal Patient Disposition: Home, Self-Care Condition: Stable Instructions: Alcohol Withdrawal (ED) Additional Instructions: Please follow-up with your primary care provider in the next few days for further evaluation and follow-up. Please call to schedule an appointment. Please rest, drink plenty of fluids. Please see additional resources for alcohol treatment/detox. Please return to the emergency department if any worsening symptoms. It was a pleasure taking care of you today. We hope you feel better soon. Prescriptions: No Action No Known Home Medications Follow Up/Referrals: Provider,Not a Local [Non-Staff, Family Practice] Stand Alone Forms: [employer] Info Instructions
--- NOTE | 2025-09-24 02:50 | CRLHL7_ITS ---
For Patients: As a result of the Century Cures Act, medical imaging exams and procedure reports are released immediately into your electronic medical record. You may view this report before your referring provider. If you have questions, please contact your health care provider. Indication: Chest pain. Technique: Two views of the chest. Comparison: Chest x-ray 11/07/2022. Findings/Impression: The heart is not abnormally enlarged. Mediastinal contours are grossly within normal limits. No definite confluent airspace opacity. No pleural effusion or pneumothorax. No acute osseous abnormality. Dictated by Diego Camacho MD @ 09/24/2025 3:40:11 AM (Electronically Signed)
[2025-09-24] MEDS: PANTOPRAZOLE SODIUM 40 MG INJ IVP (03:33)
[2025-09-24] MEDS: ONDANSETRON 2 MG/ML inj 4 MG IVP (03:33)
[2025-09-24 03:51] LABS: Hematocrit* 46.9 % (37.0-53.0); Hemoglobin* 16.3 gm/dL (13.5-17.5); Immature Granulocytes Abs Auto 0.03 K/uL (0.00-0.30); Immature Granulocytes Pct Auto 0.4 %; Lymphocytes Absolute Auto 2.16 K/uL (0.90-2.90); Mean Corpuscular HGB Conc 35 gm/dL (32-36); Mean Corpuscular Hemoglobin 29 pg (26-34); Mean Corpuscular Volume 84 fL (80-100); RDW Coefficient of Variation % 12.8 % (11.5-15.5); Red Blood Count* 5.57 m/uL (4.30-5.90); White Blood Count* 6.89 K/uL (4.50-11.00)
[2025-09-24 03:53] LABS: Slide Review Reflex No
[2025-09-24] MEDS: diazePAM 5 MG/ML inj IV (03:55)
[2025-09-24 03:58] VITALS: RESP 16; O2SAT 96
[2025-09-24 04:03] LABS: Albumin* 4.2 g/dL (3.3-5.0); Chloride* 98 mmol/L (96-114); Potassium* 4.4 mmol/L (3.6-5.1); Sodium* 135 mmol/L (135-149)
[2025-09-24 04:05] LABS: Alanine Aminotransferase* 31 U/L (4-50); Alkaline Phosphatase* 70 U/L (40-150); Anion Gap 13 mEq/L (7-15); Aspartate Amino Transferase* 53 U/L (12-35); Bilirubin Total* 2.8 mg/dL (0.1-1.5); Blood Urea Nitrogen* 9 mg/dL (5-24); Carbon Dioxide* 24 mmol/L (20-32); Creatinine* 0.9 mg/dL (0.5-1.5); Est. Creatinine Clearance* 96.91; Estimated Glomerular Filt Rate 107 ml/min
[2025-09-24 04:06] LABS: Calcium* 8.5 mg/dL (8.4-10.6); Glucose* 97 mg/dL (60-115); Total Protein* 7.2 g/dL (6.0-8.3)
[2025-09-24 04:07] LABS: Ethanol* 0.05 % (0.01-0.03)
[2025-09-24 04:20] VITALS: BP 137/91; PULSE 84; RESP 16; O2SAT 93
[2025-09-24 05:05] VITALS: BP 143/86; PULSE 96; RESP 16; O2SAT 97
== END 2025-09-24 06:24 | disposition home or self-care (01) ==
PROVIDERS: Emergency Provider Emergency Medicine; PCP Family Medicine
DX: R07.89 Other chest pain (principal); F10.139 Alcohol abuse with withdrawal, unspecified; Z56.3 Stressful work schedule; Y90.9 Presence of alcohol in blood, level not specified
CPT/HCPCS: 36415; 71046; 80053; 82077; 83690; 83735; 84484; 85025; 96361; 96374; 96375; 99284; 99285; J2405; J2470; J3360; J7030